=== PATIENT | female | born 1955 | race Caucasian/White ===

== ENCOUNTER → 2018-12-14 08:50 | Outpatient (CLI) | payer MEDICARE, OTHER ==
--- NOTE | 2018-12-17 15:06 | EC ---
PATIENT:ELIE FULLER DATE OF SERVICE: 12/14/18 SEX: F MEDICAL RECORD: [id number] DATE OF : [birth year] [facility] AGE OF PATIENT: 63 ADMISSION DATE: 12/14/18 REFERRING PHYSICIAN: INTERPRETING PHYSICIAN: JAMAR CURRAN MD ECHOCARDIOGRAM REPORT ECHO CHARGES 4 ECHO COMPLETE Date: 12/14/18 CLINICAL DIAGNOSIS: HTN ECHOCARDIOGRAPHIC MEASUREMENTS (adult normal given) AC root (d.<3.7cm) 3.2 cm LV Septum d (<1.2 cm> 1.1 cm Valve Excursion 1.4 cm LV Septum (systole) 1.2 cm Left Atria (s.<4.0cm> 3.5 cm LVPW d(<1.2cm) 1.3 cm RV (d.<2.3cm) 3.0 cm LVPW (sytole) 1.4 cm LV diastole(<5.6CM) 4.5 cm MV E-F(>70mm/sec) cm LV systole 3.1 cm LVOT Diameter 1.8 cm MV exc.(>10mm) 1.6 cm Est.ejection fraction (50-75%) % DOPPLER: LVIT cm/sec A 88. cm/sec E 78.0 cm/sec LA cm/sec RVSP 25 mmHg LVOT 96 cm/sec AOP1/2T m/s Asc. Ao 137 cm/sec RVOT 57 cm/sec RA cm/sec PA 80 cm/sec AV Gradient Peak 7.53 mmHg AV Mean 3.73 mmHg AV Area 2.1 cm MV Gradient Peak 4.07 mmHg MV Mean 1.30 mmHg MV Area cm COMMENTS: Process Supervisor: 2 SHARON MELENDEZ Director Of Entertainment: 3 Dr. Phillip TAPE# PACS Pericardial Effusion N DATE OF SERVICE: Adequate 2D, color flow, spectral Doppler, and M-Mode. No LVH. LV internal dimension is normal. Wall motion is normal. EF is greater than or equal to 55%. Aortic valve is tricuspid. No evidence of stenosis on Doppler interrogation. Left atrium is normal. Mitral valve shows no prolapse. Trace MR. Right-sided chambers grossly normal. Trace TR. TRANSINT:[id number] Voice Confirmation ID: [id number] DOCUMENT ID: [id number] ECHOCARDIOGRAM REPORT [id number] ELIE FULLER JAMAR CURRAN MD at 1506 CC: [id number] DICTATION DATE: 12/14/18 1156 GEOSPATIAL INTELLIGENCE ANALYST: 12/14/18 1235 DEP CLI 12/14/18 [id number] [place] [id number]
== END | disposition home or self-care (01) ==
LOC: D.HCCARDIO 08:50
PROVIDERS: ATTEND Internal Medicine Interventional Cardiology
DX: I10 Essential (primary) hypertension (principal)

== ENCOUNTER → 2018-12-21 10:00 | Outpatient (CLI) | payer MEDICARE, OTHER | END | disposition home or self-care (01) | LOC: D.MAMMO 10:00 | PROVIDERS: ATTEND Nurse Practitioner Family | DX: Z12.31 Encounter for screening mammogram for malignant neoplasm of breast (principal) ==

== ENCOUNTER 2019-03-05 12:47 | Outpatient (CLI) | payer MEDICARE, OTHER ==
[~2019-03-05] VITALS: Ht 149.9 cm; Wt 58.2 kg
[2019-03-05 13:10] VITALS: BP 121/65; Ht 149.9 cm; Wt 58.2 kg
== END 2019-03-05 13:36 | disposition home or self-care (01) ==
LOC: D.OPS 12:47
PROVIDERS: ATTEND Family Medicine
DX: M81.0 Age-related osteoporosis without current pathological fracture (principal)

== ENCOUNTER 2019-09-05 12:30 | Outpatient (CLI) | payer OTHER ==
[~2019-09-05] VITALS: Ht 149.9 cm; Wt 59.1 kg
[2019-09-05 13:08] VITALS: Ht 149.9 cm; Wt 59.1 kg
== END 2019-09-05 13:13 | disposition home or self-care (01) ==
LOC: D.OPS 12:30
PROVIDERS: ATTEND Family Medicine
DX: M81.0 Age-related osteoporosis without current pathological fracture (principal)

== ENCOUNTER 2020-02-11 09:30 | Outpatient (CLI) | payer OTHER ==
[2019-09-05 13:08] VITALS: BMI 26.3
== END 2020-02-11 10:30 | disposition home or self-care (01) ==
LOC: D.MAMMO 09:30
PROVIDERS: ATTEND Family Medicine
DX: Z12.31 Encounter for screening mammogram for malignant neoplasm of breast (principal)

== ENCOUNTER 2020-03-10 13:04 | Outpatient (CLI) | payer OTHER ==
[~2020-03-10] VITALS: Ht 149.9 cm; Wt 59.1 kg
[2020-03-10 13:23] VITALS: Ht 149.9 cm; Wt 59.1 kg
--- NOTE | 2020-03-10 13:40 | NUR ---
PROLIA INJECTION GIVEN. TOLERATED WELL. NO BLEEDING NOTED. ALL DC INSTRUCTIONS GIVEN. DC'D HOME AMBULATORY. NO S/S OF ACUTE DISTRESS NOTED.
== END 2020-03-10 13:40 | disposition home or self-care (01) ==
LOC: D.OPS 13:04
PROVIDERS: ATTEND Family Medicine
DX: M81.0 Age-related osteoporosis without current pathological fracture (principal)

== ENCOUNTER 2020-09-10 11:52 | Outpatient (CLI) | payer OTHER ==
[~2020-09-10] VITALS: Ht 149.9 cm; Wt 59.1 kg
[2020-09-10 12:39] VITALS: BP 143/60; Ht 149.9 cm; Wt 59.1 kg
== END 2020-09-10 12:49 | disposition home or self-care (01) ==
LOC: D.OPS 11:52
PROVIDERS: ATTEND Family Medicine
DX: M81.0 Age-related osteoporosis without current pathological fracture (principal)